=== PATIENT | female | born 2005 | race Asian ===

== ENCOUNTER 2025-07-28 10:18 | Outpatient (CLI) | payer OTHER, SELFPAY ==
--- OUTSIDE RECORDS SUMMARY | 2011-04-16 04:39 | XMS_ITS | Continuity of Care Document ---
Author Organization [facility] Address [id number] [place] [address] Phone Care Team Providers Care Bilingual Sales Representative Name Role Phone Jacoby Geiger MD Unavailable Unavailable Medications Medication Instructions Dosage Effective Dates (start - stop) Status Comments Clarinex 2.5 mg/5 mL (0.5 mg/mL) Syrup take 5 milliliter (2.5MG) by oral route every day - Active albuterol sulfate 2.5 mg/3 mL (0.083 %) Neb Solution inhale 3 milliliter (2.5MG) by nebulization route every 4-6 hours as needed - Active Nasonex 50 mcg/Actuation [place] spray 1-2 spray by intranasal route every day in each nostril - Active Advance Directives Directive Yes / No Effective Date File Name No Information Encounters Encounter Description Practice Location Reason(s) For Visit Diagnoses Date Provider Providers Copied on Encounter [facility], [address], [place], [place], [id number], tel:[phone] [facility] No Information 1 Juanjo [address]zier. [address] [place] [address], [id number] , [place]. tel: [phone] [facility], [address], [place], [address], tel:[phone] [facility] INTRINSIC ASTHMA, UNSPECIFIEDNASAL & SINUS DIS NEC 1 Juanjo Dozier. [address], [id number] , . tel: [phone] Referring Provider: Michael Stover [address] [place] [address], [address]. tel:[phone] Family History Family Member Type Diagnosis Age At Onset No Information Payers Payer name Insurance type Covered constitution party ID Authortania mejía(s) [facility] STATE [id number] Social History Type Description Quantity Date Captured Comments Sex Female Smoking Status No Information Chief Complaint And Reason For Visit No Information Reason For Referral Reason For Referral No Information History Of Present Illness Encounter Date Complaint History Of Prese nt Illness No Information Functional Status Date Functional Assessmen t No Information Instructions Date Instruction Additional Infor mation No Information Assessments Type Assessment Date No Information Patient Care Teams Name Effective Dates (start - stop) Status Members No Information
--- OUTSIDE RECORDS SUMMARY | 2025-07-28 10:55 | XMS_ITS | Clinical Summary ---
Author Organization Address [address] [place] [address] Care Team Providers Care Artificial Teeth Inspector Name Role Phone Unavailable Primary Care Provider Unavailabl e Social History Tobacco Use Types Packs/Day Years Used Date Smoking Tobacco: Never Assessed Comments Unknown Sex and Gender Information Value Date Recorded Sex Assigned at Not on file Legal Sex Female 3:05 PM CDT Gender Identity Not on file Sexual Orientation Not on file Plan of Treatment Health Maintenance Due Date Last Done Comments Hepatitis C Virus (HCV) Screening 2005 TdaP Immunization 2005 Human Papillomavirus (HPV) Immunization (1 - 3-dose series) 2020 Meningococcal B Immunization (1 of 2 - Standard) 2021 Hepatitis B Immunization (1 of 3 - 19+ 3-dose series) 2024 Influenza Immunization (#1) 2025 SARS-COV-2 Immunization ( - season) 2025 Respiratory Syncytial Virus (RSV) Immunization (Adult) (1 - 1-dose 75+ series) 2080 Meningococcal Immunization (ACWY) Aged Out 016 No longer eligible based on patient's age to complete this topic Pneumococcal Immunization Combined Aged Out No longer eligible based on patient's age to complete this topic Rotavirus Immunization Aged Out No lo nger eligible based on patient's age to complete this topic
--- OUTSIDE RECORDS SUMMARY | 2025-07-28 10:55 | XMS_ITS | Clinical Summary ---
Author Organization [facility] [address] [facility] Address [address] [place] [address] Care Team Providers Care Copying Machine Mechanic Name Role Phone Malika Menezes MD Primary Care Provider Allergies Active Allergy Reactions Criticality Noted Date Comments Amoxicillin-Pot Clavulanate Vomiting Low 04/05/20 20 Medications albuterol HFA (PROVENTIL HFA,VENTOLIN HFA,PROAIR HFA) 90 mcg/actuation inhaler Inhale 2 puffs every 4 (four) hours as needed 07/01/20 21 Active cholecalcifero l (VITAMIN D-3) 2000 unit capsule Take 2,000 Units by mouth daily 04/29/20 22 Active medroxyPROGEST ERone 150 mg/mL injection INJECT 150 MG INTRAMUSCULARLY EVERY 3 MONTHS 10/20/19 25 Active Active Problems No known active problems Social History Tobacco Use Types Packs/Day Years Used Date Smoking Tobacco: Never Tobacco Cessation:Counseling Given: Not Answered Personal Safety Answer Date Recorded Have you ever been in or are you currently in a harmful physical or emotional relationship or is someone making you feel afraid or unsafe? 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 SPECIALIST Gender Identity Not on file Sexual Orientation Not on file Obstetrics History Last Filed Vital Signs Vital Sign Reading Time Taken Comments Blood Pressure 122/73 05/05/2023 12:50 PM CDT Pulse 80 05/05/2023 12:50 PM CDT Temperature 37 C (98.6 F) 05/05/2023 11:12 AM CDT Respiratory Rate 18 05/05/2023 12:50 PM CDT Oxygen Saturation 100% 05/05/2023 12:50 PM CDT Inhaled Oxygen Concentration - - Weight 71.2 kg (157 lb) 10/31/2024 11:46 AM AQUARIUM SPECIALIST Height 152.4 cm (5') 10/31/2024 11:46 AM AQUARIUM SPECIALIST Body Mass Index 30.66 10/31/2024 11:46 AM AQUARIUM SPECIALIST Plan of Treatment Health Maintenance Due Date Last Done Comments Depression Screening 2005 Hepatitis C Screening 2005 Pneumococcal vaccine <65 (1 of 1 - PPSV23, PCV20, or PCV21) 2011 02/12/2007, 02/12/2007, 11/13/2006, Additional history exists HPV Vaccines (1 - 3-dose series) 2020 Meningococcal B Vaccine (1 o f 2 - Standard) 2021 Regular Well Visit/Exam 18-64 2023 Covid-19 Vaccine (4 - 2024-2 6 season) 2025 04/28/2022, 04/01/2021, 03/11/2021 Influenza Vaccine (#1) 2025 DTaP/Tdap/Td Vaccine (7 - Td or Tdap) 07/15/2026 07/15/2016, 05/09/2010, 11/13/2006, Additional history exists Hepatitis B Screening Completed 02/06/2006 , 2005, 2005 Varicella Vaccines Completed 05/09/2010, 0 11/13/2006, 11/13/2006 Meningococcal Vaccine Completed 04/28/2022, [address] [place] [address] [facility] [employer] CHOICE PLUS [facility] [employer] CHO[facility] PL[facility] [place] [id number] [facility] [employer] [employer] Care Teams Copying Machine Mechanic Relationship Specialty Start Date End Date Malika Menezes MD [address] [place] [address] PCP - General Pediatrics 08/12/22
--- OUTSIDE RECORDS SUMMARY | 2025-07-28 10:55 | XMS_ITS | Clinical Summary ---
Author Organization [facility] Address [address] [place] [address] Care Team Providers Care Clinical Laboratory Scientist Name Role Phone Karson Banegas MD Primary Care Provider [phone] Allergies No known active allergies Immunizations Immunization Administration Dates Next Due Tdap (Boostrix) 03/21/2025 Social History Tobacco Use Types Packs/Day Years Used Date Smoking Tobacco: Never Smokeless Tobacco: Never Tobacco Cessation:Counseling Given: Not Answered Comments No Sex and Gender Information Value Date Recorded Sex Assigned at Female 03/21/2025 10:21 AM CDT Legal Sex Female 8:34 PM CDT Gender Identity Not on file Sexual Orientation Not on file Last Filed Vital Signs Vital Sign Reading Time Taken Comments Blood Pressure 140/78 03/21/2025 9:51 AM CDT Pulse 93 03/21/2025 9:51 AM CDT Temperature 36.8 C (98.2 F) 03/21/2025 9:51 AM CDT Respiratory Rate 18 03/21/2025 9:51 AM CDT Oxygen Saturation 100% 03/21/2025 9:51 AM CDT Inhaled Oxygen Concentration - - Weight 70.5 kg (155 lb 6.8 oz) 03/21/2025 9:51 A M CDT Height 152.4 cm (5') 03/21/2025 9:51 AM CDT Body Mass Index 30.35 03/21/2025 9:51 AM CDT Plan of Treatment Health Maintenance Due Date Last Done Comments Annual Physical 2008 HPV Vaccines (1 - 3-dose series) 2020 Meningococcal B Vaccine (1 of 2 - Standard) 2021 Hepatitis C 2023 COVID-19 Vaccine ( season) 2025 04/28/2022, 04/01/2021, 03/11/2021 Influenza Adult (#1) 2025 DTaP, Tdap and Td Vaccines (8 - Td or Tdap) 03/21/2035 03/21/2025, 07/15/2016, 05/09/2010, Additional history exists Hepatitis B Vaccines Completed 02/06/2006, 2005, 2005 Pneumococcal Vaccine: Pediatrics (0 to 5 Years) and At-Risk Patients (6 to 49 Years) Aged Out 02/12/2007, 11/13/2006 No longer eligibl e based on patient's age to complete this topic Meningococcal Vaccine Completed 04/28/2022, 016 RSV Immunizations Under 20 Months Aged Out No longer eligible based on patient's age to complete this topic Insurance [facility] Care Teams Clinical Laboratory Scientist Relationship Specialty Start Date End Date Karson Banegsa MD PCP - General FAMILY PRACTICE 10/15/23
--- OUTSIDE RECORDS SUMMARY | 2025-07-28 10:55 | XMS_ITS | Clinical Summary ---
Author Organization [facility] Address [address] [facility] [place] [address] Phone Care Team Providers Care Powder Guard Name Role Phone Pancho Oquendo MD Primary Care Provider Allergies Active Allergy Reactions Criticality Noted Date Comments Ibuprofen Angioedema High 10/25/2014 Medications cetirizine (ZYRTEC) 10 mg tablet Take 10 mg by mouth. Takes PRN for congestion Active albuterol (PROVENTIL,RETA JOSE D) 2.5 mg /3 mL (0.083 %) Solution for Nebulization Take 2.5 mg by inhalation one time only. Takes PRN for reactive airway Active polyethylene glycol 3350 (MIRALAX) 17 gram/dose PowderIndication s:PRN constipation Take 17 Gram by mouth one time only. Dissolve in 8 ounces of fluid and drink entire liquid Indications: PRN constipation Active hydrocortisone valerate (WESTCORT) 0.2 % Ointment Apply to affected area 2 times daily. 45 Gram 2 Active Active Problems Problem Noted Date Diagnosed Date Headache 10/25/2014 Social History Tobacco Use Types Packs/Day Years Used Date Smoking Tobacco: Never Assessed Feeling Safe Answer Date Recorded Are you in a relationship wi th someone who hurts you emotionally and/or physically? 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 Gender Identity Not on file Sexual Orientation Not on file Last Filed Vital Signs Vital Sign Reading Time Taken Comments Blood Pressure 105/78 01/22/2025 6:27 PM CDT Pulse - - Temperature 36.4 C (97.5 F) 01/22/2025 3:45 PM CDT Respiratory Rate 16 01/22/2025 6:27 PM CDT Oxygen Saturation 100% 01/22/2025 6:27 PM CDT Inhaled Oxygen Concentration - - Weight 68 kg (150 lb) 01/22/2025 3:45 PM CDT Height 152.4 cm (5') 01/22/2025 3:45 PM CDT Body Mass Index 29.29 01/22/2025 3:45 PM CDT Plan of Treatment Health Maintenance Due Date Last Done Comments CHLAMYDIA SCREENING (ANNUAL) 11-24 YEARS 2016 HPV VACCINES (1 - 3-dose series) 2020 INFLUENZA VACCINE (#1) 2025 COVID-19 Vaccine (2 - 2024-2 6 season) 2025 04/28/2022 DTAP/TDAP/TD VACCINES (7 - T d or Tdap) 07/15/2026 07/15/2016, 05/09/2010, 11/13/2006, Additional history exists HEPATITIS B VACCINES Completed 02/06/2006, 2005, [address] [place] [id number] [place] [employer] [id number] Care Teams Powder Guard Relationship Specialty Start Date End Date Pancho Oquendo MD [address] [place] [phone] PCP - General Pediatrics 10/25/14
[2025-07-28 11:27] LABS: Syphilis IgG/IgM Antibody Non-Reactive (Nonreactive)
== END 2025-07-28 10:19 | disposition home or self-care (01) ==
LOC: ANHLAB 10:18
PROVIDERS: Visit Provider Student in an Organized Health Care Education/Training Program
DX: A53.0 Latent syphilis, unspecified as early or late (principal)
CPT/HCPCS: 36415; 86593